=== PATIENT | male | born 1985 | race Caucasian/White ===

== ENCOUNTER 2016-09-20 15:00 | Inpatient (IN) | payer OTHER ==
--- NOTE | ~2016-09-20 | DS ---
Unit #: [id number] #: [id number] Patient: JOSÉ CLAUDIO [id number] [place] [address] [id number] MR#: [id number] NAME: JOSÉ CLAUDIO. ROOM: P185 Age: 31 Sex: M Admission Date: 09/20/2016 : 1985 Discharge Date: 09/24/2016 Attending Physician: Yonis Lau M.D. Primary Care Physician: Primary Care Physician No DISCHARGE SUMMARY REASON FOR ADMISSION Opiate dependency with withdrawal. DIAGNOSTIC STUDIES PERTINENT LABORATORY DATA: Patient had routine blood work which included CMP that was within normal parameter. His creatinine low at 0.5, total ___ 5.8, albumin 3.4, AST 43, ALT 85, which are keeping with his history of use. CBC was performed which was normal with the exception of MCV of 82.6, MCH of 26.8, remaining findings were within normal variation. RPR was nonreactive. Urine tox was positive for amphetamines and opiates, again keeping with his history. Urinalysis showed 1+ urobilinogen but was otherwise negative. HOSPITAL COURSE Patient was admitted for safety and stabilization for ongoing issues with opiate dependency and withdrawal. Patient has a longstanding history of that as well as other polysubstance abuse issues and was placed on COWS protocol accordingly. Patient was fairly isolative to himself most of the entire admission with the exception of the last 24 hours when he did get up and go to groups and activities more regularly. He complained frequently of fatigue, aches and pain, upset stomach, headaches, sleep, depression, anxiety, etc. Over the course of the hospitalization his symptoms were resolved to the point at time of discharge he was denying any acute problems at all. Patient was also seen during this hospitalization by the nurse practitioner for his asthma complaints and he was restarted on previous doses of Symbicort and p.r.n. albuterol all of which he tolerated well. At time of discharge, it was felt patient had reached maximum benefit from admission and was appropriately discharged. Patient was doing some med seeking at time of discharge in terms of wanting detox meds for discharge but given his risk of diversion was discouraged especially since he was not having any active symptoms. He agreed. Also, since he was also planning to go to [facility] for residential treatment. Overall, there was no necessity for patient being maintained from inpatient admission and was discharged. DISCHARGE DIAGNOSES 1. Opiate dependence with withdrawal. 2. Asthma. 3. Gastroesophageal reflux disease. FOLLOWUP CARE Discharge followup is with [facility]. Unit #: [id number] #: [id number] Patient: JOSÉ CLAUDIO DISCHARGE MEDICATIONS 1. Claritin 10 mg daily for seasonal allergies. 2. Protonix 20 mg daily for GERD. 3. Albuterol inhaler 2 puffs every 4 hours as needed for breakthrough asthma exacerbation. 4. Symbicort 80/4.25 mcg 2 puffs b.i.d. scheduled for asthma. CONDITION AT DISCHARGE Improved. PROGNOSIS Guarded given his longstanding repetitive substance abuse. DIET AND ACTIVITY Diet is regular and activity as tolerated with sobriety encouraged. Dictated by... Yonis Lau M.D. MC/cindy TD: 09/24/2016 15:01 JOB #: [id number] DISCHARGE SUMMARY Page 1 of 1 X Yonis Lau MD X DISCHARGE SUMMARY
--- NOTE | ~2016-09-20 | PN ---
Unit #: [id number] #: [id number] Patient: JOSÉ CLAUDIO [id number] [facility] [address] [place] [address] [id number] I MR#: [id number] NAME: JOSÉ CLAUDIO. ROOM: 85 Age: 31 Sex: M Admission Date: 09/20/2016 : 1985 Attending Physician: Yonis Lau M.D. Admitting Physician: Yonis Lau M.D. Primary Care Physician: Primary Care Physician No DEMIAN PROGRESS NOTES DATE 09/22/2016 SUBJECTIVE UPDATE This is a 31-year-old white male, with a longstanding history of heroin dependency who is continuing to go through detox symptoms. The patient continues to complain of fatigue, aches and pains, (1)____ sleep issue, upset stomach but no diarrhea or vomiting yet. No active SI today. The patient has been compliant with care but has been fairly isolative to his room. The patient denied any new issues today. He is asking for larger portions on his food and was appreciative of nurse practitioner seeing him for his asthma needs. MENTAL STATUS EXAM General appearance is a limitedly groomed white male, fairly thin but moderately groomed at best. Good eye contact. Speech was clear and coherent normal prosody. Mood was dysphoric, anxious, with a congruent affect. Thought process and content are grossly organized and linear. No overt evidence of psychosis. No SI, no HI reported or elicited. The patient's memory was grossly intact. Associations were normal. Cognitive functioning was at baseline. Alert and oriented times four. Insight and judgement is limited regarding substance abuse. ASSESSMENT AND RECOMMENDATIONS We will continue patient's admission for safety and stabilization for ongoing detox issues. Patient's symptoms seem fairly mild as according above but we will continue to monitor for any window of peeking symptoms. We will reevaluate tomorrow morning to make next determination of level of care needs. Dictated by... Marbella Mac/wayne TD: 09/23/2016 01:09 JOB #: [id number] Unit #: [id number] #: [id number] Patient: OJSÉ CLAUDIO [facility] PROGRESS NOTES Page 1 of 1 X Yonis Lau MD PROGRESS NOTE
--- NOTE | ~2016-09-20 | PA ---
Unit #: [id number] #: [id number] Patient: JOSÉ CLAUDIO [id number] [place] [address] [id number] I MR#: [id number] NAME: JOSÉ CLAUDIO. ROOM: P185 Age: 31 Sex: M Admission Date: 09/20/2016 : 1985 Date of Assessment: 09/21/2016 Attending Physician: Yonis Lau M.D. Admitting Physician: Yonis Lau M.D. Primary Care Physician: Primary Care Physician No PSYCHIATRIC ASSESSMENT LOCATION [facility], room #185, bed #2. DATE OF SERVICE 09/21/2016. INFORMANT The patient and chart both seem reliable. 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 Overall, the patient reports feeling fatigued with aches and pains, and seemed disinterested in the evaluation process in general, but was at least responsive briefly. He has been through treatment admission here, but no other treatment locally. He denies any history of SI or HI at this time. No any other acute mood issues. Again, the patient's cooperation was not enthusiastic. PAST PSYCHIATRIC HISTORY Nothing overt in terms of inpatient or outpatient treatment. The patient denies ever being on psychiatric medication. Denies any history of active SI, HI, or psychosis. FAMILY HISTORY Noncontributory. SOCIAL HISTORY As noted above. The patient is essentially homeless. No support locally. Education; Master skilled in nursing as noted. MEDICAL HISTORY Nothing of significance beyond GERD and seasonal allergies. MEDICATION HISTORY Include [id number] seasonal medications and Protonix for his stomach. ALLERGIES Include sulfa and azithromycin both of which cause hives. Unit #: [id number] #: [id number] Patient: JOSÉ CLAUDIO SUBSTANCE ABUSE HISTORY As noted above. History of DUI, notably other legal complications from his past as well as lost of his nursing license. MENTAL STATUS EXAMINATION General appearance; this is a limitedly groomed white male, appears older than stated age, limited cooperation. Speech was clear, but brief. Mood was dismissive with a blunted affect. Thought process and content were grossly organized and linear. No overt evidence of psychosis. The patient denied any active SI or HI. The patient's memory was grossly intact. Associations were normal. Cognitive function is at baseline. Alert and oriented x4. Insight and judgment are poor. Assets include exposure to previous CD treatment. Liabilities include homelessness. No support. Continued substance abuse, extreme complications, social, economic, legal from his substance use. ADMITTING DIAGNOSES Opioid dependency with withdrawal. PSYCHIATRIC PLAN Psychiatric plan will be to continue the patient's admission for safety and stabilization for ongoing heroin detox risks. The patient will be put on COWS protocol accordingly and monitored for effects with treatment goals being resolution of all symptoms in a safe controlled environment. Discharge planning including community resources and/or residential treatment, if not senior care house if possible. Estimated length of stay approximately [address] to [address] Med Consult today as well because the patient may have a history of asthma and further evaluate for possible need for care while here in the hospital. Dictated by... Yonis Lau M.D. MC/elba TD: 09/21/2016 13:22 JOB #: [id number] PSYCHIATRIC ASSESSMENT Page 1 of 1 X Yonis Lau MD PSYCHIATRIC ASSESSMENT
--- NOTE | ~2016-09-20 | CO ---
Unit #: [id number] #: [id number] Patient: SCOT CLAUDIO [id number] [place] [address] [id number] I MR#: [id number] NAME: SCOT CLAUDIO. ROOM: P185 Age: 31 Sex: M Admission Date: 09/20/2016 : 1985 Attending Physician: Yonis Lau M.D. Primary Care Physician: Primary Care Physician No Consultation Date: 09/22/2016 CONSULTATION REPORT HISTORY OF PRESENT ILLNESS Scot reports a history of asthma and uses ProAir inhaler at home. He is not having any coughing or wheezing at this time, but does feel some chest tightness and is concerned that he will need a ProAir inhaler. No other complaints. PHYSICAL EXAMINATION CARDIAC: Regular rate and rhythm. No murmur, gallop, or rub. RESPIRATORY: Clear to auscultation bilaterally. ASSESSMENT AND PLAN Asthma. We will begin ProAir 90 mcg inhaled 2 puffs q.4 hours p.r.n., and Symbicort 80/4.5 mcg inhaled 2 puffs q.12 hours. Dictated by... Natalya Bennett A.P.R.N. for Marbella Tellez/elba TD: 09/23/2016 01:18 JOB #: [id number] CONSULTATION REPORT Page 1 of 1 X NATALYA MA APRN X CONSULTATION REPORT
--- NOTE | ~2016-09-20 | A ---
[facility] Nutrition Therapy DATE: 09/23/16 Patient: JOSÉ CLAUDIO Physician: OLIMPIA Address: NO PERMANENT ADDRESS Room/Bed: [address], Zip: [place] [address] Admit Date: 09/20/16 Date of : [birth year] Height: 5 10 Weight: 149 68.0388 NUTRITIONAL ASSESSMENT: REASON: MD consult re: low weight Admitting dx: 31 y/o male admitted with SI and detox PMH: Opoid abuse to include IV heroin, asthma Anthropometrics: Ht: 70", Wt: 150 lbs, BMI: 21 (normal), 90% IBW Assessment: Chart reviewed, events noted. RD consulted due to low body weight, however the patient's BMI is normal and he is 90% IBW. Scored 0 points on the malnutrition risk screen but then reported a 30 lb weight loss in "months" in the needs assessment. Patient is on a regular diet, requesting large portion entrees- will send with lunch and dinner. See recs below. Dx: Questionable unintentional weight loss r/t drug abuse, SI AEB reported 30 lb weight loss in months in the needs assessment. Intervention: Large portion entrees Monitoring, Evaluation and Goals: 1. PO intake > 50% of meals. 2. Maintain current weight status. Monitor: Per protocol, criteria to determine if above goals met Recommendations: 1. Continue regular diet, encouage adequate fluid and meal intake. 2. Will send large portion entree as requested with lunch and dinner. 3. Patient's BMI is normal. Consult not appropriate. 4. If PO intake is < 50% of meals order Ensure Plus BID (requires MD order; available in chocolate or vanilla). RD will follow Mild nutrition risk Respectfully, [facility] Nutrition Therapy DATE: 09/23/16 Patient: JOSÉ CLAUDIO Physician: OLIMPIA Address: NO PERMANENT ADDRESS Room/Bed: [address], Zip: [place] [address] Admit Date: 09/20/16 Date of : [birth year] Height: 5 10 Weight: 149 68.0388 Tatiana Rudolph, RIYA, LD [facility] cc: client file
--- NOTE | ~2016-09-20 | HP ---
Unit #: [id number] #: [id number] Patient: SCOT CLAUDIO [id number] [place] [address] [id number] MR#: [id number] NAME: SCOT CLAUDIO. ROOM: P185 Age: 31 Sex: M Admission Date: 09/20/2016 : 1985 Attending Physician: Yonis Lau M.D. Admitting Physician: Yonis Lau M.D. Primary Care Physician: Primary Care Physician No HISTORY AND PHYSICAL HISTORY OF PRESENT ILLNESS Scot is a 31 year old admitted to [facility] because of his drug use. He shoots heroin. PAST MEDICAL HISTORY 1. Long history of opioid abuse to include IV heroin. 2. Asthma. PAST SURGICAL HISTORY Oral. ALLERGIES Sulfa, azithromycin. SOCIAL HISTORY He denies cigarettes and alcohol. Admits to a long history of IV heroin and methamphetamine. FAMILY HISTORY Medically noncontributory. REVIEW OF SYSTEMS CONSTITUTIONAL: No fever or chills. HEENT: Denies any sore throat, ear pain or runny nose. CARDIOVASCULAR: Denies chest pain, irregular heart rhythm or palpitations. CHEST: Denies shortness of breath or cough. No hemoptysis. GASTROINTESTINAL: Denies nausea, vomiting, diarrhea or chronic constipation. ENDOCRINE: Denies history of increased thirst or urination. No recent significant weight loss or gain. GENITOURINARY: Denies dysuria, frequency, or hematuria. SKIN: Denies any rashes. HEMATOLOGIC: Denies history of increased bleeding or bruising. MUSCULOSKELETAL: Denies any hot, swollen joints. No generalized muscle pain. NEUROLOGIC: Denies problems with vision or speech. No frequent, severe headaches. No numbness, tingling or weakness in any extremities. Denies loss of bladder or bowel control. CURRENT MEDICATIONS Detox protocol Unit #: [id number] #: [id number] Patient: SCOT CLAUDIO PHYSICAL EXAMINATION GENERAL: Alert, well-nourished, in no apparent distress. VITAL SIGNS: Blood pressure 100/56, heart rate 68, respirations 16, temperature 98.6. WEIGHT: 150 pounds. HEIGHT: 5'10". SKIN: Warm and dry without rash or lesion. HEENT: Normocephalic. TMs not viewed. Oral and nasal passages clear. Conjunctivae clear. Pupils equal, round and reactive to light and accommodation. Extraocular movements intact. NECK: Supple without lymphadenopathy or thyromegaly. HEART: Regular rate and rhythm without murmur. LUNGS: Clear. ABDOMEN: Soft, nontender. : Not done. EXTREMITIES: No evidence of cyanosis, clubbing or edema. Moves all extremities without focal deficit. NEUROLOGICAL: Grossly within normal limits. Cranial Nerves: II: Visual oates are intact. III, IV AND : Extraocular movements are intact. Pupils are equal, round and reactive to light. V: Facial sensation is grossly normal. VII: Facial movements and expression are normal. VIII: Auditory acuity grossly intact. IX, X: Uvula is midline. Phonation is normal. XI: Patient shrugs shoulders and turns head normally. XII: Tongue protrudes in the midline. Sensory and Motor Function: Sensory and motor sensation is grossly normal. Motor: moves all extremities well. Coordination: Gait is normal. Deep Tendon Reflexes: Intact. ADMISSION LABS AST/ALT 43/85. IMPRESSION 1. Psychiatric admission 2. Long history of IV drug use 3. Elevated liver enzymes on admission RECOMMENDATIONS PSYCHIATRIC: Per psychiatrist. MEDICAL: 1. I see no contraindications to participating in facility's activities. 2. Would screen for hepatitis C. MEDICAL PROGNOSIS Good. MEDICAL CONDITION Stable. Dictated by... Cheryl Ford P.A.-C. for Vikki Iniguez M.D. Unit #: [id number] #: [id number] Patient: SCOT CLAUDIO Belen NAVA/wayne TD: 09/22/2016 00:53 JOB #: [id number] HISTORY AND PHYSICAL Page 1 of 1 X Cheryl Ford HISTORY AND PHYSICAL
--- NOTE | ~2016-09-20 | PN ---
Unit #: [id number] #: [id number] Patient: JOSÉ CLAUDIO [id number] [facility] [address] [place] [address] [id number] I MR#: [id number] NAME: JOSÉ CLAUDIO. ROOM: P185 Age: 31 Sex: M Admission Date: 09/20/2016 : 1985 Attending Physician: Yonis Lau M.D. Admitting Physician: Yonis Lau M.D. Primary Care Physician: Primary Care Physician Belia ARCINIEGA PROGRESS NOTES DATE 09/23/2016 SUBJECTIVE UPDATE This is a 31-year-old white male, with ongoing issues of heroin detox continuing to complain of issues with fatigue, upset stomach, aches pains, sleep disturbance, poor energy. The patient is still isolative to self with little interaction with groups and activities because of "low energy." The patient is still complaining of GI upset, combination of nauseousness but also hungry. A dietary consult has been placed because of concerns of malnutrition. The patient is compliant with med direction at this time. MENTAL STATUS EXAM General appearance is a limitedly groomed white male still isolative to room. Good eye contact. Speech was clear and coherent normal prosody. Mood was depressed with a constricted affect. Thought process and content are grossly organized and linear. No overt evidence of psychosis. The patient denied any active SI or HI. The patient's memory was grossly intact. Associations were normal. Cognitive functioning was at baseline. Alert and oriented times four. Insight and judgement is limited. RECOMMENDATIONS We continue the patient's ongoing detox issues at this time as noted above. Wait on dietary consult for concern for malnutrition given the patient's thin presentation and GI instability. Symptoms are still present but improving slowly. Hoping for possible disposition to treatment program on Monday if it all possible given the patient's prognosis as being guarded. Dictated by... Marbella Mac/wayne TD: 09/25/2016 22:26 JOB #: [id number] Unit #: [id number] #: [id number] Patient: JOSÉ CLAUDIO PEARANDI PROGRESS NOTES Page 1 of 1 X Yonis Lau MD PROGRESS NOTE
[2016-09-21 09:47] LABS: BASOPHIL# 0.1 X10e3 (0-0.3); EOSINOPHIL# 0.3 X10e3 (0-0.7); LYMPHOCYTE# 1.8 X10e3 (1.0-3.5); LYMPHOCYTE% 33.3 % (17.0-45.0); MEAN CELL VOLUME 82.6 FL (83-96); MEAN CORPUSCULAR HEMOGLOBIN 26.8 PG (28-34); MEAN CORPUSCULAR HGB CONC 32.4 g/dL (30-36); MEAN PLATELET VOLUME 6.9 FL (6.5-11.5); MONOCYTE# 0.7 X10e3 (0-1.0); MONOCYTE% 12.1 % (3.0-12.0); NEUTROPHIL# 2.7 X10e3 (1.5-7.1); NEUTROPHIL% 48.6 % (40-75); PLATELET COUNT 261 X10e3 (140-420); RED BLOOD COUNT 4.84 X10e (3.90-5.60); RED CELL DISTRIBUTION WIDTH 14.9 % (11.0-15.5); WHITE BLOOD COUNT 5.5 X10e3 (4.0-10.5)
[2016-09-21 09:57] LABS: URINE APPEARANCE TURBID; URINE BLOOD NEG (NEG); URINE COLOR DK YELLOW; URINE GLUCOSE NEG (NEG); URINE KETONE TRACE (NEG); URINE LEUKOCYTE ESTERASE NEG (NEG); URINE NITRATE NEG (NEG); URINE PH 5.5 (5-8); URINE PROTEIN NEG (NEG); URINE SPECIFIC GRAVITY 1.028 (1.003-1.035)
[2016-09-21 09:58] LABS: DIFF IND NO
[2016-09-21 10:08] LABS: ALBUMIN SERUM 3.4 g/dL (3.5-5.0); BILIRUBIN,TOTAL 0.6 mg/dL (0.2-2.0); CALCIUM SERUM 8.6 mg/dL (8.4-10.2); CREATININE SERUM 0.5 mg/dL (0.6-1.4); GLOM FILT RATE Estimated 143.4 mL/min (>60); POTASSIUM 3.9 mmol/L (3.5-5.1); PROTEIN TOTAL SERUM 5.8 g/dL (6.0-8.3)
[2016-09-21 10:29] LABS: URINE BILIRUBIN NEG (NEG)
[2016-09-21 11:33] LABS: AMPHETAMINE POS (NEG); BARBITURATES NEG (NEG); BENZODIAZEPINES NEG (NEG); COCAINE NEG (NEG); MARIJUANA NEG (NEG); OPIATES POS (NEG); TRICYCLIC ANTIDEPRESSANTS NEG (NEG); U METHADONE NEG (NEG)
== END 2016-09-24 11:42 | disposition home or self-care (01) | DRG 897 ==
LOC: P1E 18:31
PROVIDERS: Psychiatry & Neurology Psychiatry
PROC: HZ2ZZZZ Detoxification Services for Substance Abuse Treatment (ICD-10-PCS; principal; 2016-09-20)
DX: F11.23 Opioid dependence with withdrawal (principal); J45.909 Unspecified asthma, uncomplicated; Z59.0 Homelessness; Z88.1 Allergy status to other antibiotic agents; Z88.2 Allergy status to sulfonamides; K21.9 Gastro-esophageal reflux disease without esophagitis
CPT/HCPCS: 80053; 80307; 81003; 85025; 86592

== ENCOUNTER 2016-10-02 11:00 | Inpatient (IN) | payer OTHER ==
--- NOTE | ~2016-10-02 | PN ---
Unit #: [id number] #: [id number] Patient: SCOT LESLIE [id number] [facility] [address] [place] [address] [id number] MR#: [id number] NAME: SCOT LESLIE. ROOM: 86 Age: 31 Sex: M Admission Date: 10/03/2016 : 1985 Attending Physician: Gerald Escoto M.D. Admitting Physician: Marbella Lemus NOTES DATE OF SERVICE: 10/05/2016 DISCUSSION Scot Leslie is a 31-year-old male, seen on 10/05/2016. The patient interviewed, chart reviewed, and obtained information from nursing staff. The patient compliant and cooperative. Flat affect. Sad and dysphoric mood. The patient reports medication is helping him. The patient's HIV test came back as nonreactive. The patient's urine drug screen negative. RPR negative. No side effects from medication. Still having trouble sleeping. REVIEW OF SYSTEMS Complete review of systems unremarkable. MENTAL STATUS EXAMINATION General appearance, the patient dressed casually. Attention span and concentration, fair. Oriented in place and person. Mood and affect, sad and dysphoric. Speech, monotone. Thought process, concrete. The patient denied any thoughts of harming self or others. Recent and remote memory, poor. Insight and judgment, poor. DIAGNOSES Mood disorder, not otherwise specified; opioid use disorder, moderate; and amphetamine use disorder, moderate. ASSESSMENT AND PLAN Advised to continue with current medication with a plan to stop trazodone and start Seroquel 100 mg at bedtime with a plan to consider discharge this week and follow up in [facility] level of care. Dictated by... Marbella Lemus/elba TD: 10/07/2016 19:16 JOB #: [id number] Unit #: [id number] #: [id number] Patient: SCOT LESLIE PROGRESS NOTES Page 1 of 1 X Gerald Escoto MD X PROGRESS NOTE
--- NOTE | ~2016-10-02 | PA ---
Unit #: [id number] #: [id number] Patient: SCOT CLAUDIO [id number] [facility] [address] [place] [address] [id number] Radha MR#: [id number] NAME: SCOT CLAUDIO. ROOM: P186 Age: 31 Sex: M Admission Date: 10/03/2016 : 1985 Date of Assessment: 10/03/2016 Attending Physician: Gerald Escoto M.D. Admitting Physician: Gerald Escoto M.D. Primary Care Physician: Primary Care Physician No PSYCHIATRIC ASSESSMENT INFORMANTS The patient reliability, fair informant; chart reliability, good. CHIEF COMPLAINT "I want to kill myself and feel very depressed, I have been using heroin and methamphetamine." HISTORY OF PRESENT ILLNESS Mr. Scot Claudio is a 31-year-old male, presented with the above-mentioned complaint. The patient carries a diagnosis of mood disorder, opioid disorder, amphetamine abuse disorder. The patient presented with suicidal ideation with a plan to kill himself with overdose, walk into the traffic, or shoot himself. He also owns a gun. He gave the gun to a friend. The patient reported he is severely depressed. The patient reported the drug of choice is heroin, however, he used meth in the last year. The patient reports that that is why he thinks that he has thoughts of killing himself due to meth abuse. 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 The patient reports that "I was clean for almost 6 weeks." PAST PSYCHIATRIC HISTORY Remarkable for history of [facility] at [facility]. No history of any other psychiatric treatment. FAMILY HISTORY AND SOCIAL HISTORY The patient reported currently homeless, poor support system. The patient reports substance abuse and mental illness in both sides of family. MEDICAL HISTORY Remarkable for history of asthma, kidney stone, and acid reflux. MUSCULOSKELETAL; muscle strength and tone, no atrophy or abnormal movement. Gait normal. MEDICATION HISTORY The patient is currently on no medication. ALLERGIES No known drug allergies. SUBSTANCE ABUSE HISTORY The patient reported alcohol use, age of onset 12; marijuana, age of onset Unit #: [id number] #: [id number] Patient: SCOT CLAUDIO 12; crack cocaine, age of onset 15; opioid, age of onset 16; amphetamine, age of onset 30; benzodiazepine, age of onset 16. The patient reported longest period of sobriety 6 weeks, last period of sobriety 1 year ago. The patient reported history of IV drug use, history of blackouts. No history of any HIV or hepatitis. Denied any withdrawal symptom except nausea, sweating, vomiting, depressed mood. REVIEW OF SYSTEMS Complete review of systems; HEENT: Eyes; clear. Ears, nose, mouth, and throat; clear. CARDIOVASCULAR: Unremarkable. RESPIRATORY: Unremarkable. GI: Unremarkable. : Unremarkable. SKIN: Unremarkable. LYMPH NODE: Unremarkable. NEUROLOGIC: Unremarkable. ENDOCRINE: Unremarkable. HEMATOLOGIC: Unremarkable. ALLERGIC/IMMUNOLOGIC: Unremarkable. MUSCULOSKELETAL: Muscle strength and tone, no atrophy or abnormal movement. Gait normal except as mentioned above. MENTAL STATUS EXAMINATION CONSTITUTIONAL: Measurement of vital signs; temperature 98.3, pulse 85, respirations 20, blood pressure 131/90, height 5 feet 10 inches, weight 160 pounds. GENERAL APPEARANCE: The patient dressed casually. The patient did not show any facial deformity. MUSCULOSKELETAL: Please see above. PSYCHIATRIC EXAMINATION Description of speech; regular rate, normal volume. Description of thought process, circumstantial. Description of association, intact. Description of abnormal psychotic thinking; the patient denied any hallucination or delusions, but depression, suicidal ideation, and substance abuse. Description of the patient's judgment, concerning everyday activity, poor. Social situation, poor. Concerning psychiatric condition, poor. Complete mental status examination; oriented in time, place, and person. Recent and remote memory, fair. Attention span and concentration, fair. Language; able to name object and repeat phrases. Fund of knowledge; aware of current event and past history. Vocabulary, intact. Mood and affect; sad and dysphoric. Insight and judgment, fair to poor. ASSETS AND LIABILITIES Assets; the patient is articulate, able to take care of his ADL. Liability; history of depression and substance abuse. ADMITTING DIAGNOSES Psychiatric: Major depressive disorder, recurrent, [id number]-[id number]-[id number], F33.2; opioid use disorder, severe, F11.20; amphetamine use disorder, [id number]-[id number], F15.20. Secondary diagnosis: Deferred. Unit #: [id number] #: [id number] Patient: SCOT CLAUDIO Medical diagnoses: History of asthma, gastroesophageal reflux disease. Stressors: Psychosocial stressor. PSYCHIATRIC PLAN 1. Advised to admit the patient on the inpatient unit. Provide safe, supportive, and structured environment. 2. Ordered labs; CBC, CMP, UA, and UDS. 3. SP1 precaution, detox protocol, and detox monitoring. The patient to resume medication, Claritin 10 mg daily, Protonix 40 mg daily, Symbicort for asthma. The patient to attend all the programing, group therapy, individual therapy, medication management. TREATMENT GOAL To attain euthymic mood, gain insight into his problem, and learn coping skills. DISCHARGE PLAN Plan to stabilize the patient and consider followup in outpatient program. ESTIMATED LENGTH OF STAY 5 days. Dictated by... Gerald Escoto M.D. NATE/elba TD: 10/03/2016 16:37 JOB #: [id number] PSYCHIATRIC ASSESSMENT Page 1 of 1 X Gerald Escoto MD PSYCHIATRIC ASSESSMENT
--- NOTE | ~2016-10-02 | FU ---
[facility] Nutrition Therapy DATE: 10/06/16 Patient: JOSÉ Glover CLAUDIO Physician: CARLA Address: NO PERMANENT ADDRESS Room/Bed: [address], [facility], Zip: [place] [id number] Admit Date: 10/03/16 Date of : [birth year] Height: 5 10 Weight: 159 [id number] NUTRITION MONITORING/FOLLOW-UP: Reason: Consult re: "Ensure" Assessment: Chart reviewed, current events noted. See RD note dated 09/23/16 for full assessment. Consulted today for Ensure, however food and nutrition services staff has already added the Ensure to the patient's cardex to receive TID. Agree with current diet order (Regular) and recommendation of Ensure. Recommendations: 1. Continue regular diet, will send Ensure Plus TID (available in chocolate or vanilla). 2. Please consult dietitian or call [phone] from inside OL) with any further nutritional needs. Respectfully, Tatiana Rudolph RD, LD [facility] cc: client file
--- NOTE | ~2016-10-02 | HP ---
Unit #: [id number] #: [id number] Patient: SCOT CLAUDIO [id number] [place] [address] [id number] I MR#: [id number] NAME: SCOT CLAUDIO. ROOM: P186 Age: 31 Sex: M Admission Date: 10/03/2016 : 1985 Attending Physician: Gerald Escoto M.D. Admitting Physician: Gerald Escoto M.D. Primary Care Physician: Primary Care Physician No HISTORY AND PHYSICAL NOTE Scot is a 31 year old admitted to [facility] because of his continued drug use. He was just discharged from this facility after treatment for the same. The patient was seen and H and P dated 09/21/2016 was reviewed. This is current. No changes. Please see H and P dated 09/21/2016. Dictated by... Cheryl Ford PReynaAReyna-Kathie. for Marbella Tellez/wayne TD: 10/04/2016 00:02 JOB #: [id number] HISTORY AND PHYSICAL Page 1 of 1 X Cheryl Ford HISTORY AND PHYSICAL
--- NOTE | ~2016-10-02 | CO ---
Unit #: [id number] #: [id number] Patient: SCOT CLAUDIO [id number] [place] [address] [id number] MR#: [id number] NAME: SCOT CLAUDIO. ROOM: P186 Age: 31 Sex: M Admission Date: 10/03/2016 : 1985 Attending Physician: Gerald Escoto M.D. Primary Care Physician: Primary Care Physician No Consultation Date: 10/04/2016 CONSULTATION REPORT SUBJECTIVE Scot is a 31-year-old who was admitted with a healing abrasion along his alvarado and a couple of areas across top of his feet. These were sustained days before his admission to [facility]. We have been asked to assess and treat. All areas are completely scabbed over. The wounds are old enough that the scabs have started to slough off. There is no increased redness, swelling, heat, or pus noted. ASSESSMENT Healing abrasions. PLAN Triple antibiotic ointment with a Band-Aid to cover the area daily. Dictated by... Cheryl Ford P.A.-C. for Marbella Tellez/elba TD: 10/06/2016 17:13 JOB #: [id number] CONSULTATION REPORT Page 1 of 1 X Cheryl Ford CONSULTATION REPORT
--- NOTE | ~2016-10-02 | PN ---
Unit #: [id number] #: [id number] Patient: SCOT LESLIE [id number] [facility] [address] [place] [address] [id number] MR#: [id number] NAME: SCOT LESLIE. ROOM: P186 Age: 31 Sex: M Admission Date: 10/03/2016 : 1985 Attending Physician: Gerald Escoto M.D. Admitting Physician: Gerald Escoto M.D. Primary Care Physician: Primary Care Physician Belia ARCINIEGA PROGRESS NOTES DATE 10/04/2016 DISCUSSION Scot Leslie is a 31-year-old male seen on 10/04/2016. Patient's mood sad, dysphoric, flat affect, guarded. Reported that he did better on Wellbutrin in the past. Does not want to be on SSRI because of sexual side effects. Patient sad, depressed, withdrawn, isolative, guarded. Vital signs stable 98.4, 120, 140/91. Complete review of system unremarkable. MENTAL STATUS EXAMINATION Patient dressed in hospital attire, thin built. Attention span, concentration fair. Oriented in place and person. Mood and affect sad, depressed. Speech monotone. Thought processes concrete. Patient denied any thoughts of harming self or others but guarded. Recent and remote memory poor. Insight and judgement poor. DIAGNOSES 1. Mood disorder NOS. 2. Opiate use disorder, moderate. 3. Amphetamine use disorder, moderate. ASSESSMENT/PLAN Advised to continue with current medication with a plan to add Wellbutrin XL 150 mg in the morning. If needed, consider further adjustment of medication. Dictated by... Marbella Lemus/cindy TD: 10/05/2016 23:02 JOB #: [id number] Unit #: [id number] #: [id number] Patient: SCOT LESLIE [facility] PROGRESS NOTES Page 1 of 1 X Gerald Escoto MD PROGRESS NOTE
--- NOTE | ~2016-10-02 | DS ---
Unit #: [id number] #: [id number] Patient: JOSÉ CLAUDIO [id number] [facility] [address] [place] [address] [id number] I MR#: [id number] NAME: JOSÉ CLAUDIO. ROOM: 86 Age: 31 Sex: M Admission Date: 10/03/2016 : 1985 Discharge Date: 10/06/2016 Attending Physician: Gerald Escoto M.D. Primary Care Physician: Primary Care Physician No DISCHARGE SUMMARY REASON FOR ADMISSION Detox, suicidal ideation. DIAGNOSTIC STUDIES LABORATORY RESULTS: Unremarkable. HOSPITAL COURSE The patient was admitted to inpatient unit on 10/03/2016 and discharged on 10/06/2016. The patient was treated on the inpatient unit with chemical dependency group, expressive therapy, medication management, psychoeducation, psychotherapy, and structured milieu. The patient was responsive to treatment. Subsequently, the patient was discharged with a plan to follow up in outpatient program. DISCHARGE MEDICATIONS Wellbutrin XL 150 mg in the morning and noon for depressive symptom and Seroquel 100 mg at bedtime for mood stabilization and sleep. DISCHARGE DIAGNOSES Psychiatric: Major depressive disorder, recurrent, moderate to severe, F33.2 and opioid use disorder, severe, F11.20. Secondary diagnosis: Deferred. Medical diagnosis: History of asthma, gastroesophageal reflux disease. Stressors: Psychosocial stressor. DISCHARGE INSTRUCTIONS The patient to follow up in outpatient clinic as per social sciences chair. CONDITION ON DISCHARGE The patient was pleasant and cooperative. Denied any psychotic symptom or any suicidal ideation. PROGNOSIS Guarded. DIET AND ACTIVITY As tolerated. Dictated by... Unit #: [id number] #: [id number] Patient: JOSÉ CLAUDIO Gerald Escoto M.D. SZC/elba TD: 10/06/2016 15:43 JOB #: [id number] DISCHARGE SUMMARY Page 1 of 1 X Gerald Escoto MD X DISCHARGE SUMMARY
[2016-10-04 09:36] LABS: URINE APPEARANCE CLEAR; URINE BILIRUBIN NEG (NEG); URINE BLOOD NEG (NEG); URINE COLOR YELLOW; URINE GLUCOSE NEG (NEG); URINE KETONE NEG (NEG); URINE LEUKOCYTE ESTERASE NEG (NEG); URINE NITRATE NEG (NEG); URINE PH 6.5 (5-8); URINE PROTEIN NEG (NEG); URINE SPECIFIC GRAVITY 1.001 (1.003-1.035); URINE UROBILINOGEN 0.2 MG/DL (NEG)
[2016-10-04 09:43] LABS: BASOPHIL% 0.2 % (0-2.5); HEMATOCRIT 41.6 % (38.0-50.0); HEMOGLOBIN 13.8 gm/dL (13.0-16.0); LYMPHOCYTE# 1.2 X10e3 (1.0-3.5); LYMPHOCYTE% 9.3 % (17.0-45.0); MEAN CELL VOLUME 81.1 FL (83-96); MEAN CORPUSCULAR HGB CONC 33.3 g/dL (30-36); MEAN PLATELET VOLUME 7.1 FL (6.5-11.5); MONOCYTE# 0.6 X10e3 (0-1.0); NEUTROPHIL# 11.1 X10e3 (1.5-7.1); NEUTROPHIL% 85.5 % (40-75); PLATELET COUNT 395 X10e3 (140-420); RED BLOOD COUNT 5.12 X10e (3.90-5.60); RED CELL DISTRIBUTION WIDTH 15.3 % (11.0-15.5)
[2016-10-04 09:44] LABS: DIFF IND NO
[2016-10-04 09:56] LABS: ALBUMIN SERUM 4.1 g/dL (3.5-5.0); BILIRUBIN,TOTAL 0.8 mg/dL (0.2-2.0); BUN/CREATININE RATIO 16.66; CALCIUM SERUM 9.7 mg/dL (8.4-10.2); CREATININE SERUM 0.6 mg/dL (0.6-1.4); GLOM FILT RATE Estimated 133.1 mL/min (>60); POTASSIUM 4.3 mmol/L (3.5-5.1); PROTEIN TOTAL SERUM 6.7 g/dL (6.0-8.3)
[2016-10-04 10:03] LABS: AMPHETAMINE NEG (NEG); BARBITURATES NEG (NEG); BENZODIAZEPINES NEG (NEG); COCAINE NEG (NEG); MARIJUANA NEG (NEG); OPIATES NEG (NEG); TRICYCLIC ANTIDEPRESSANTS NEG (NEG); U METHADONE NEG (NEG)
[2016-10-10 19:12] LABS: HA AB IGM (HEPPAN) Nonreactive (()); HB CORE AB IGM (HEPPAN) Nonreactive (Nonreactive); HB S AG (HEPPAN) Nonreactive (Nonreactive); HEP C AB (HEPPAN) Reactive (Nonreactive)
== END 2016-10-06 14:10 | DRG 885 ==
LOC: POF 10-03 08:34 → P1E 10-03 08:34
PROVIDERS: Psychiatry & Neurology Psychiatry
PROC: HZ2ZZZZ Detoxification Services for Substance Abuse Treatment (ICD-10-PCS; principal; 2016-10-03)
DX: F33.2 Major depressive disorder, recurrent severe without psychotic features (principal); F11.20 Opioid dependence, uncomplicated; R45.851 Suicidal ideations; F15.20 Other stimulant dependence, uncomplicated; Z59.0 Homelessness; Z81.8 Family history of other mental and behavioral disorders; Z81.4 Family history of other substance abuse and dependence; F39 Unspecified mood [affective] disorder; S80.819A Abrasion, unspecified lower leg, initial encounter; S90.819A Abrasion, unspecified foot, initial encounter; X58.XXXA Exposure to other specified factors, initial encounter
CPT/HCPCS: 80053; 80074; 80307; 81003; 85025; 86592; 87522; 87806; J2550